=== PATIENT | male | born 1960 | race Caucasian/White ===

== ENCOUNTER 2017-03-01 14:22 | Emergency (ER) | payer OTHER, BC ==
[~2017-03-01] VITALS: Ht 177.8 cm; Wt 86.2 kg
--- NOTE | ~2017-03-01 | CR169 ---
[facility] A Service of [facility] RADIOLOGY TEXT RESULTS PATIENT: PENG DICKEY LOCATION: CFTX : 60 UNIT #: [id number] AGE: [address]: Radha Chiu APRN SEX: M ORDER DR: [id number] [facility] [address]. [place], [place] [address] [id number] E MR#: [id number] Acc #: [id number] NAME: PENG DICKEY : 1960 SEX: M STUDY DATE/TIME: 03/01/2017 14:47 UNIT: [facility] ROOM: STUDY DESCRIPTION: CR Knee 2 Views Lt Attending Physician: Radha Chiu A.P.R.N. Ordering Physician: [facility] MEDICAL IMAGING REPORT This report is preliminary unless electronic signature is present EXAM Left knee 2 views HISTORY Knee pain after injury yesterday. FINDINGS 2 views left knee demonstrate normal bone alignment. No fracture, joint space narrowing or effusion. No opaque soft tissue foreign body. Soft tissue injury along the medial margin of the knee. IMPRESSION No fracture or soft tissue injury along the medial margin of the knee. Dictated by... Kj Holbrook M.D. THIS IS AN ELECTRONICALLY VERIFIED REPORT Kj Holbrook M.D. at 03/01/2017 10:12 PM DFL/pcl TD: 03/01/2017 21:15 JOB #: [id number] MEDICAL IMAGING REPORT Page 1 of 1 COPY
== END 2017-03-01 16:20 | disposition home or self-care (01) ==
LOC: CED 14:22 → CFTX 14:22
DX: S81.012A Laceration without foreign body, left knee, initial encounter (principal); I10 Essential (primary) hypertension; Z23 Encounter for immunization; W45.8XXA Other foreign body or object entering through skin, initial encounter; Y92.69 Other specified industrial and construction area as the place of occurrence of the external cause; Y99.0 Civilian activity done for income or pay
CPT/HCPCS: 29530; 73560; 90471; 90715; 99283